=== PATIENT | female | born 1990 | race Caucasian/White ===

== ENCOUNTER 2016-05-20 18:28 | Emergency (ER) | payer OTHER ==
[2016-05-20 18:45] VITALS: RESP 18; TEMP 97.4
--- NOTE | 2016-05-20 19:31 | ED ---
General Adult HPI - General Chief complaint: Skin/Abscess/Foreign Body Stated complaint: abcess Time Seen by Provider: 05/20/16 18:49 Source: patient, RN notes reviewed Mode of arrival: ambulatory Limitations: no limitations - History of Present Illness Initial comments: Is a 25-year-old female presents with abscess to the left lower extremity and right axillary area. Patient states these have been present for 3 days. Patient states that the abscess to the lower left extremity is draining. Patient states she has a history of MRSA. Patient also complains of otalgia. Patient states she thought she had a fever yesterday but this has subsided and fever was only subjective. Patient denies any nausea/vomiting/diarrhea. Patient denies any chance of being . Patient denies any recent shortness breath, chest pain, abdominal pain, nausea/vomiting/diarrhea, back pain, numbness, tingling, hematuria, headache, or visual changes, or any other complaints. - Related Data Previous Rx's Medication Instructions Recorded HYDROcodone/APAP 5-325MG [[place] 1 tab PO Q6HR #7 tab 05/20/16 5-325] Aujcfxut-Aicrlipkv-Lf Otic 2 drops BOTH EARS TID 7 Days 05/20/16 [Cortisporin Otic Soln] Sulfamethox-Tmp 800-160Mg [Bactrim 1 tab PO Q12HR #28 tab 05/20/16 DS 800-160 mg] Allergies Allergy/AdvReac Type Severity Reaction Status Date / Time No Known Allergies Allergy Verified 05/20/16 19:42 Review of Systems ROS Statement: Those systems with pertinent positive or pertinent negative responses have been documented in the HPI. ROS Other: All systems not noted in ROS Statement are negative. Past Medical History Past Medical History: No Reported History History of Any Multi-Drug Resistant Organisms: MRSA Date of last positivie culture/infection: 2006 MDRO Source:: neck Past Surgical History: Ear Surgery, Tonsillectomy Past Psychological History: No Psychological Hx Reported Smoking Status: Current every day smoker Past Alcohol Use History: None Reported Past Drug Use History: Marijuana General Exam - General Exam Comments Initial Comments: General: The patient is awake and alert, in no distress, and does not appear acutely ill. Eye: Pupils are equal, round and reactive to light, extra-ocular movements are intact. No nystagmus. There is normal conjunctiva bilaterally. No signs of icterus. Ears: TMs erythematous and dull bilaterally. External ear canals erythematous, dry and scaly. Nose: Nasal turbinates pink and moist. Mouth and throat: There are moist mucous membranes and no oral lesions. Neck: The neck is supple, there is no tenderness or JVD. Cardiovascular: There is a regular rate and rhythm. No murmur, rub or gallop is appreciated. Respiratory: Lungs are clear to auscultation, respirations are non-labored, breath sounds are equal. No wheezes, stridor, rales, or rhonchi. Musculoskeletal: Normal ROM, no tenderness. Strength 5/5. Sensation intact. Radial pulses equal bilaterally 2+. Neurological: A&O x 3. CN II-XII intact, There are no obvious motor or sensory deficits. Coordination appears grossly intact. Speech is normal. Skin: There is an abscess to the right axillary area with surrounding erythema approximately 2 cm that is not draining. The area is erythematous, tender and warm. There is an abscess to the medial aspect of the left thigh that is draining with surrounding erythema approximately 2.5 cm. Area is erythematous, warm and tender. Skin is warm and dry. Psychiatric: Cooperative, appropriate mood & affect, normal judgment. Limitations: no limitations Course Vital Signs 05/20/16 18:41 Temperature 97.4 F L Pulse Rate 128 H Respiratory 18 Rate Blood Pressure 116/73 O2 Sat by Pulse 98 Oximetry Procedures - Procedures Initial comment: Procedure: Incision and drainage The skin overlying the abscess was prepped with Betadine, and anesthetized with 1% lidocaine without epinephrine. A #11 scalpel was then used to incise the abscess. Some purulent material was then extracted from the lesion. This was done of the right axillary area and to the medial aspect of the left thigh. Wound cultures were obtained. Gauze dressing placed on top, The patient tolerated the procedure well. Medical Decision Making - Medical Decision Making This is a 25-year-old female presents with abscesses to the right axillary area and the medial aspect of the left thigh. Patient also complains of otalgia. On physical exam There is an abscess to the right axillary area with surrounding erythema approximately 2 cm that is not draining. The area is erythematous, tender and warm. There is an abscess to the medial aspect of the left thigh that is draining with surrounding erythema approximately 2.5 cm. Area is erythematous, warm and tender. Skin is warm and dry. Bilateral tympanic membranes are erythematous and dull. External ear canals are erythematous, dry, and scaly. Discussed the patient should be been on a course of Bactrim. Discussed warm compresses to promote drainage. Discussed use of eardrops. Procedure: Incision and drainage The skin overlying the abscess was prepped with Betadine, and anesthetized with 1% lidocaine without epinephrine. A #11 scalpel was then used to incise the abscesses. Some purulent material was then extracted from the lesions. This was done to the right axillary area and to the medial aspect of the left thigh. Wound cultures were obtained. Gauze dressing placed on top, The patient tolerated the procedure well. The patient will be given a prescription for [place]. Discussed pxpb-xau-zistqvc tylenol or Motrin as needed for any pain. Discussed return parameters. Patient was referred to a primary care physician. Discussed that patient should follow up with PCP in one to 2 days or return to the [facility] for any worsening symptoms or for any further concerns. Patient was receptive to this plan and patient will be discharged home. I discussed his case with attending physician Dr. Carroll who agrees the plan as stated above. Disposition Clinical Impression: Abscess, Otitis externa, Otitis media Disposition: HOME SELF-CARE Condition: Good Instructions: Abscess (ED) Additional Instructions: Please finish her course of antibiotics. Please use warm compresses to the areas to allow drainage. Please use eardrops as prescribed. please use pain medication as prescribed. Please use medication as discussed. Please follow- up with family doctor in the next 2 days of symptoms have not improved. Please return to emergency room if the symptoms increase or worsen or for any other concerns. Prescriptions: HYDROcodone/APAP 5-325MG [[place] 5-325] 1 tab PO Q6HR #7 tab Gxqkwwxm-Zwokpdovp-Mr Otic [Cortisporin Otic Soln] 2 drops BOTH EARS TID 7 Days Sulfamethox-Tmp 800-160Mg [Bactrim DS 800-160 mg] 1 tab PO Q12HR #28 tab Referrals: None,Stated [Primary Care Provider] - 1-2 days Sharona Aaron MD [REFERRING] - 1-2 days Time of Disposition: 19:50
[2016-05-20 19:56] VITALS: BP 119/74; PULSE 102
== END 2016-05-20 19:56 | disposition home or self-care (01) ==
LOC: EC 18:28
DX: L02.411 Cutaneous abscess of right axilla (principal); L02.416 Cutaneous abscess of left lower limb; H66.93 Otitis media, unspecified, bilateral; H60.93 Unspecified otitis externa, bilateral; Z86.14 Personal history of Methicillin resistant Staphylococcus aureus infection; F17.200 Nicotine dependence, unspecified, uncomplicated
CPT/HCPCS: 10061; 87070; 87077; 87186; 87205; 99283

== ENCOUNTER 2016-05-22 | Emergency (ER) | payer OTHER ==
--- NOTE | 2016-05-22 22:35 | ED ---
Skin/Abscess/FB HPI - General Chief complaint: Skin/Abscess/Foreign Body Stated complaint: abscess on face Time Seen by Provider: 05/22/16 22:24 Source: patient Mode of arrival: ambulatory Limitations: no limitations - History of Present Illness Initial comments: Patient is a 25-year-old female presenting to the emergency department with complaints of swelling and pain to her forehead. Patient states that symptoms have been ongoing for 2 days. Patient states that she has been squeezing the pimple on her forehead without drainage coming out. Patient reports that she was in the emergency department 2 days ago where she had an abscess drained under her right arm. Patient states she is currently on Bactrim. Patient reports a history of MRSA on her neck. Patient denies fevers , chills, nausea, vomiting, shortness of breath, chest pain, or abdominal pain. Patient denies any other symptoms. - Related Data Previous Rx's Medication Instructions Recorded Xygoqxob-Hdlkhwdof-Lm Otic 2 drops BOTH EARS TID 7 Days 05/20/16 [Cortisporin Otic Soln] Sulfamethox-Tmp 800-160Mg [Bactrim 1 tab PO Q12HR #28 tab 05/20/16 DS 800-160 mg] Allergies Allergy/AdvReac Type Severity Reaction Status Date / Time No Known Allergies Allergy Verified 05/22/16 22:10 Review of Systems ROS Statement: Those systems with pertinent positive or pertinent negative responses have been documented in the HPI. ROS Other: All systems not noted in ROS Statement are negative. Past Medical History Past Medical History: No Reported History History of Any Multi-Drug Resistant Organisms: MRSA Date of last positivie culture/infection: 2006 MDRO Source:: neck Past Surgical History: Ear Surgery, Tonsillectomy Past Psychological History: No Psychological Hx Reported Smoking Status: Current every day smoker Past Alcohol Use History: None Reported Past Drug Use History: Marijuana General Exam Limitations: no limitations General appearance: alert, in no apparent distress Head exam: Present: atraumatic, normocephalic, normal inspection Eye exam: Present: normal appearance, PERRL, EOMI. Absent: scleral icterus, conjunctival injection, periorbital swelling, periorbital tenderness ENT exam: Present: normal exam, normal oropharynx, mucous membranes moist, TM's normal bilaterally, normal external ear exam Neck exam: Present: normal inspection, full ROM. Absent: tenderness, meningismus, lymphadenopathy Respiratory exam: Present: normal lung sounds bilaterally. Absent: respiratory distress, wheezes, rales, rhonchi, stridor Cardiovascular Exam: Present: regular rate, tachycardia, normal heart sounds. Absent: systolic murmur, diastolic murmur, rubs, gallop, clicks GI/Abdominal exam: Present: soft, normal bowel sounds. Absent: distended, tenderness, guarding, rebound, rigid Extremities exam: Present: normal inspection, full ROM, normal capillary refill Neurological exam: Present: alert, oriented X3, CN II-XII intact Psychiatric exam: Present: normal affect, normal mood Skin exam: Present: warm, dry, normal color Expanded Type of lesion: Present: abscess (To forehead) Description of rash: Present: size (Abscess approximately 1 x 1 cm scabbed over with crust), tenderness (Mild), erythematous, fluctuant (Minimal). Absent: indurated Course Vital Signs 05/22/16 22:07 Temperature 98.4 F Pulse Rate 114 H Respiratory 20 Rate Blood Pressure 142/87 O2 Sat by Pulse 98 Oximetry Medical Decision Making - Medical Decision Making Patient is a 25-year-old female presenting to the emergency department with small abscess to forehead with minimal fluctuance. Patient at this time refuses needle aspiration. Patient instructed to continue Bactrim and apply warm compresses 3-4 times a day to site and return to the emergency department if symptoms do not improve or get worse. Patient in agreement with treatment plan. Disposition Clinical Impression: Abscess of forehead Disposition: HOME SELF-CARE Condition: Good Instructions: Abscess (ED) Additional Instructions: Continue Bactrim as previously prescribed. Apply warm compresses 3-4 times a day. Continue Tylenol or Motrin for pain management. Please return to the emergency department if symptoms do not improve or get worse such as fevers, increased facial swelling, nausea, vomiting, or increased pain. Referrals: None,Stated [Primary Care Provider] - 1-2 days Time of Disposition: 22:34
== END 2016-05-22 22:39 | disposition home or self-care (01) ==
CPT/HCPCS: 99282